=== PATIENT | male | born 1990 | race Caucasian/White ===

== ENCOUNTER 2020-08-18 12:24 | Emergency (ER) | payer MEDICAID, SELFPAY ==
[2020-08-18 12:43] VITALS: BP 122/80; PULSE 91; RESP 18; TEMP 37.9; O2SAT 97; BMI 43.4
--- NOTE | 2020-08-18 13:19 | ED_ITS ---
HPI - Skin/Abscess/Foreign Bdy General Chief complaint: Wound/Laceration Stated complaint: abscess Time Seen by Provider: 08/18/20 12:53 Source: patient Mode of arrival: ambulatory History of Present Illness HPI narrative: 30-year-old male with a past medical history of anxiety, depression, DM, IV drug abuse presenting to ED with right forearm abscess x4 days with worsening swelling/erythema and pain. Reports subjective fever at home. Admits abscess at IV drug use site. Denies abscess/ injury to other areas. Admits to similar symptoms in the past MD complaint: abscess/boil Onset (ago): day(s) Location: RUE Severity: moderate Related Data Previous Rx's Medication Instructions Recorded cephalexin [Keflex] 500 mg PO Q6H 7 Days #28 cap 08/18/20 doxycycline hyclate 100 mg PO BID 7 Days #14 tab 08/18/20 Allergies Allergy/AdvReac Type Severity Reaction Status Date / Time No Known Allergies Allergy Verified 08/18/20 12:43 Review of Systems Review of Systems: Constitutional: No Weight loss, +subj Fever, + Chills Cardiovascular: No Chest Pain, No SOB Respiratory: No Cough, No Sputum Musculoskeletal: No joint pain, No Myalgias Skin: + abscess to right forearm.+ Arm swelling/erythema Neuro: No Weakness, No Numbness, No Paresthesias Yes all other systems are reviewed and are negative [facility] Past Medical History Attestation statement: The following information was validated with the patient. Medical History Anxiety Depression Diabetes Difficulty sleeping IV drug user Social History Social History Advance Directives: No Advance Directives Information Provided: No Physical Exam Vital Signs: Vital Signs: Vital Signs Temp Pulse Resp BP Pulse Ox 08/18/20 12:43 100.3 F 91 18 122/80 97 Body Mass Index 43.4 Const: General: cooperative and healthy appearing Orientation/consciousness: patient oriented x3 Limitations: no limitations HENMT: Head: Yes normal to inspection Ears: hearing grossly normal bilaterally General nose exam: Normal external nose present Face and sinus: Yes normal facial exam Eyes: General: appearance normal, both eyes and all related structures EOM: EOMs intact bilaterally Neck: Neck: Yes normal visual inspection Resp: Effort & Inspection: normal respiratory effort Cardio: Rate: regular rate Skin: Other: + fluctuant abscess to right forearm with a surrounding erythema/ cellulitis. + Warm to touch Rashes: no rashes Wounds: no wounds Neuro: General: patient oriented x3 Gait exam (Neuro): Normal gait present Extrem: General: Yes normal to inspection Course Course Course Narrative: -[id number]-- patient refusing blood work, will sign out AMA. Risks of sepsis / discussed, patient verbalized understanding and still refusing to stay for blood work/workup, reports dogs in hotel needs take care of them. He allowed me to perform I & D prior to DC. He received 1st dose of Keflex and doxycycline in the ED Procedures Abscess I/D Site: upper extremity Side (if applicable): right Local Anesthetic: lidocaine 1% Amount of anesthesia used (mL): 4 Technique: incised with blade Sent for culture/gram staining?: No Irrigation: No Packing used?: none MDM - Skin/Abscess/Foreign Bdy MDM Narrative Medical decision making narrative: On exam low-grade temp 100.3?, nontoxic appearing, abscess with cellulitis noted right forearm from IV drug abuse. low concern for severe sepsis Plan: Labs, lactate, blood cultures, I&D Differential Diagnosis Differential diagnosis: Likely abscess of skin or subcutaneous tissue and cellulitis Medical Records Attestation: I reviewed the patient's medical records. Discharge Plan Discharge Clinical Impression: Abscess, Cellulitis Patient Disposition: Left Against Medical Advice Instructions: Cellulitis (ED), Abscess (ED) Additional Instructions: your abscess was drained today in ED Doxycycline and Keflex antibiotics you need to take the meds prescribed Keep area dry and clean It is normal for to drain for the next 24-48 hours You should be re-evaluated in 2 days by another provider if swelling, redness, pain worsens, you have fevers return to the ED immediately Prescriptions: New doxycycline hyclate 100 mg tablet 100 mg PO BID 7 Days Qty: 14 RF: 0 cephalexin [Keflex] 500 mg capsule 500 mg PO Q6H 7 Days Qty: 28 RF: 0
[2020-08-18] MEDS: Acetaminophen 325 MG TABLET 650 MG PO (14:47)
[2020-08-18] MEDS: cephALEXin 500 MG CAPSULE PO (14:47)
[2020-08-18] MEDS: Lidocaine HCl 1 % 20 ML VIAL SUBCUT (14:47)
--- NOTE | 2020-08-18 14:52 | PC.NURSE ---
THIS RN TO PT'S ROOM FOR D/C, PT PACING REQUESTING TO LEAVE, PT MEDICATED PER EMAR, D/C PPWK GIVEN, UPON FIRST ENCOUNTER W/ PT PT'S WOUND ALREADY DRAINED AND DRESSED BY PROVIDER. PT DECLINED REPEAT VITAL SIGNS.
== END 2020-08-18 14:54 | disposition left against medical advice (07) ==
PROVIDERS: Emergency Provider Emergency Medicine
DX: L02.413 Cutaneous abscess of right upper limb (principal); L03.113 Cellulitis of right upper limb; E11.9 Type 2 diabetes mellitus without complications; F19.10 Other psychoactive substance abuse, uncomplicated
CPT/HCPCS: 10060; 99283